=== PATIENT | male | born 1945 | race Caucasian/White ===

== ENCOUNTER → 2016-04-18 | Outpatient (CLI) | payer MEDICARE, MEDICAID ==
[~2016-04-18] MED LIST: ACETYLCYST100 MG/1 M IH; ACETYLCYSTEINE 10% IH; ATROVENT HFA12.9 G1 IH; CARDURA4 MG GT; CARDURA4 MG JT; CIPROFLOXA500 MG/5 M JT; CLARITIN10 MG GT; CLARITIN5 MG/5 ML JT; CORTEF DPS5 MG GT; CORTEF DPS5 MG JT; CORTEF10 MG JT; CRANBERRY JT; CRANBERRY250 MG GT; CRANBERRY250 MG JT; DILANTIN-1125 MG/51 JT; DIPHEDRYL12.5 MG/1 JT; DITROPAN SY5 MG/5 ML JT; DITROPAN-DPS5 MG GT; DITROPAN-DPS5 MG JT; DUONEB DPS3 ML IH; E.E.S. 200200 MG/5 M JT; ERYPED GT; FLONASE 0.05% D16 GM IH; FLONASE 0.05% D16 GM IN; FLONASE 0.05% D16 GM NS; FLOVENT HFA10.6 GM IH; FURADANTIN25 MG/5 ML JT; FUROSEMIDE10 MG/1 M2 JT; IBUPROFEN100 MG/5 M JT; IOPHEN NR100 MG/5 M JT; IOPHEN-C NR LI473 ML JT; KCL40 MEQ/30 JT; KEPPRA DPS500 MG/51 GT; KEPPRA DPS500 MG/51 JT; KEPPRA100 MG/1 M JT; LAMICTAL DPS100 MG JT; LAMICTAL100 MG GT; LAMICTAL150 MG JT; LASIX JT; LEVAQUIN DPS25 MG/ML JT; LEVAQUIN500 MG JT; LORATADINE JT; MAALOX DPS30 ML JT; MAPAP650 MG/20. JT; MILK OF MAGNESI10 ML JT; MIRALAX PACKET17 GM JT; MIRALAX17 GM GT; MOTRIN SUS100 MG/5 M GT; MOTRIN SUS100 MG/5 M JT; MUCOMYST 10% DPS4 ML IH; OMEPRAZOLE GT; OMEPRAZOLE JT; OMEPRAZOLE SUSP JT; POTASSIUM20 MEQ/15 JT; PREDNISONE20 MG GT; PROVENTIL2.5 MG/3 M IH; PSEUDOEPHEDRINE JT; Q-DRYL12.5 MG/5 JT; RESTORIL15 MG GT; ROBITUSSIN100 MG/5 M JT; ROBITUSSIN200 MG/10 GT; ROZEREM8 MG JT; SYNTHROID50 MCG JT; TEMAZEPAM7.5 MG JT; TYLENOL DP650 MG/20. GT; TYLENOL DP650 MG/20. JT; VITAMIN D31000 UNIT JT; VITAMIN D3400 UNIT/1 JT; ZITHROMAX200 MG/51 PO; ZYRTEC 5MG/5ML JT; [UNRECOGNIZED DRUG - MIXTURE] JT; [UNRECOGNIZED DRUG - OTHER] GT; [UNRECOGNIZED DRUG - OTHER] GT; [UNRECOGNIZED DRUG - OTHER] GT; [UNRECOGNIZED DRUG - OTHER] JT; [UNRECOGNIZED DRUG - OTHER] JT; [UNRECOGNIZED DRUG - OTHER] JT; [UNRECOGNIZED DRUG - OTHER] JT
== END | disposition home or self-care (01) ==
LOC: PTH.S 09:45
DX: G40.219 Localization-related (focal) (partial) symptomatic epilepsy and epileptic syndromes with complex partial seizures, intractable, without status epilepticus (principal); G40.419 Other generalized epilepsy and epileptic syndromes, intractable, without status epilepticus; E55.9 Vitamin D deficiency, unspecified; Z92.29 Personal history of other drug therapy

== ENCOUNTER 2016-04-26 19:51 | Emergency (ER) | payer MEDICARE, MEDICAID ==
[~2016-04-26 19:51] MED LIST changes: -ACETYLCYST100 MG/1 M IH; -ACETYLCYSTEINE 10% IH; -DIPHEDRYL12.5 MG/1 JT; -FLONASE 0.05% D16 GM IN; -FUROSEMIDE10 MG/1 M2 JT; -LEVAQUIN DPS25 MG/ML JT; -MOTRIN SUS100 MG/5 M JT; -OMEPRAZOLE SUSP JT; -POTASSIUM20 MEQ/15 JT; -ROBITUSSIN100 MG/5 M JT; -VITAMIN D3400 UNIT/1 JT; -ZYRTEC 5MG/5ML JT
--- NOTE | 2016-05-02 07:42 | ER ---
ADMIT: 04/26/2016 RM/LOC: ER [facility] MR#: [id number] [address] [place] [address] Emergency Room Report SEX: M AGE: 71 : 1945 DATE: 04/26/2016 TIME: 1952 hours. Please refer to my T-sheet for complete H and P. HISTORY OF PRESENT ILLNESS: Briefly, the patient is a 71-year-old with a history of MR and an NG tube, who apparently pulled his GJ tube out tonight, did not come all the way out, the bubble came out. It is still holding the space open, but they brought him in for evaluation. He did not get his night meds. PHYSICAL EXAMINATION: VITAL SIGNS: Stable. ABDOMEN: Soft. J-tube, the bubble is outside the skin, but the tube is still in the entrance, it has been taped in nicely. EMERGENCY DEPARTMENT COURSE: We called Interventional Radiology, Dr. Duran, who is on for the group [facility]. They will work him in the morning. We gave him a liter of normal saline bolus. I gave him his Keppra 200 mg IV, Ativan 0.5 mg IV, and they will hold feeds for tonight and get him first thing after the intervention tomorrow. ASSESSMENT: Pulled out gastrojejunostomy tube. PLAN: Replaced by IR in the morning. Hold meds for tonight and tomorrow morning. Sekou Jimenez MD/ devan JOB #: [id number] CC: Sekou Jimenez MD, Attending Physician Ken Becerra MD, Family Physician
[2016-10-08] MEDS ORDERED: DUONEB DPS3 ML IH ×2 (19:39→19:53)
[2016-10-08] MEDS ORDERED: FLONASE 0.05% D16 GM IN (19:41)
[2016-10-08] MEDS ORDERED: ACETYLCYST100 MG/1 M IH (19:41)
[2016-10-08] MEDS ORDERED: ACETYLCYSTEINE 10% IH (19:42)
[2016-10-08] MEDS ORDERED: CORTEF10 MG JT ×2 (19:43→19:51)
[2016-10-08] MEDS ORDERED: CARDURA4 MG JT (19:43)
[2016-10-08] MEDS ORDERED: DIPHEDRYL12.5 MG/1 JT (19:43)
[2016-10-08] MEDS ORDERED: [UNRECOGNIZED DRUG - OTHER] JT (19:45)
[2016-10-08] MEDS ORDERED: POTASSIUM20 MEQ/15 JT (19:46)
[2016-10-08] MEDS ORDERED: LAMICTAL DPS100 MG JT (19:47)
[2016-10-08] MEDS ORDERED: KEPPRA DPS500 MG/51 JT (19:47)
[2016-10-08] MEDS ORDERED: OMEPRAZOLE SUSP JT (19:48)
[2016-10-08] MEDS ORDERED: MIRALAX PACKET17 GM JT (19:48)
[2016-10-08] MEDS ORDERED: SYNTHROID50 MCG JT (19:49)
[2016-10-08] MEDS ORDERED: VITAMIN D3400 UNIT/1 JT (19:50)
[2016-10-08] MEDS ORDERED: [UNRECOGNIZED DRUG - OTHER] JT (19:51)
[2016-10-08] MEDS ORDERED: LEVAQUIN DPS25 MG/ML JT (19:52)
[2016-10-08] MEDS ORDERED: DITROPAN SY5 MG/5 ML JT (19:52)
[2016-10-08] MEDS ORDERED: MILK OF MAGNESI10 ML JT (19:53)
[2016-10-08] MEDS ORDERED: ZYRTEC 5MG/5ML JT (19:53)
[2016-10-08] MEDS ORDERED: TYLENOL DP650 MG/20. JT (19:54)
[2016-10-08] MEDS ORDERED: ROBITUSSIN100 MG/5 M JT (19:54)
[2016-10-08] MEDS ORDERED: MOTRIN SUS100 MG/5 M JT (19:55)
[2016-10-08] MEDS ORDERED: MAALOX DPS30 ML JT (19:56)
[2016-10-08] MEDS ORDERED: CRANBERRY250 MG JT (19:56)
[2016-10-08] MEDS ORDERED: FUROSEMIDE10 MG/1 M2 JT (19:57)
[2016-10-08] MEDS ORDERED: FURADANTIN25 MG/5 ML JT (19:59)
== END 2016-04-26 22:15 | disposition home or self-care (01) ==
LOC: ER 19:51
DX: Z43.1 Encounter for attention to gastrostomy (principal); Z79.899 Other long term (current) drug therapy

== ENCOUNTER → 2016-04-27 | Outpatient (CLI) | payer MEDICARE, MEDICAID ==
[~2016-04-27] MED LIST changes: +ACETYLCYST100 MG/1 M IH; +ACETYLCYSTEINE 10% IH; +DIPHEDRYL12.5 MG/1 JT; +FLONASE 0.05% D16 GM IN; +FUROSEMIDE10 MG/1 M2 JT; +LEVAQUIN DPS25 MG/ML JT; +MOTRIN SUS100 MG/5 M JT; +OMEPRAZOLE SUSP JT; +POTASSIUM20 MEQ/15 JT; +ROBITUSSIN100 MG/5 M JT; +VITAMIN D3400 UNIT/1 JT; +ZYRTEC 5MG/5ML JT
== END | disposition home or self-care (01) ==
LOC: RAD.S 02-03 14:00
PROC: 0D2DXUZ Change Feeding Device in Lower Intestinal Tract, External Approach (ICD-10-PCS; principal; 2016-04-27)
DX: Z46.59 Encounter for fitting and adjustment of other gastrointestinal appliance and device (principal)

== ENCOUNTER 2016-06-11 08:40 | Emergency (ER) | payer MEDICARE, MEDICAID ==
[~2016-06-11 08:40] MED LIST changes: -ACETYLCYST100 MG/1 M IH; -ACETYLCYSTEINE 10% IH; -DIPHEDRYL12.5 MG/1 JT; -FLONASE 0.05% D16 GM IN; -FUROSEMIDE10 MG/1 M2 JT; -LEVAQUIN DPS25 MG/ML JT; -MOTRIN SUS100 MG/5 M JT; -OMEPRAZOLE SUSP JT; -POTASSIUM20 MEQ/15 JT; -ROBITUSSIN100 MG/5 M JT; -VITAMIN D3400 UNIT/1 JT; -ZYRTEC 5MG/5ML JT
--- NOTE | 2016-06-12 10:41 | ER ---
ADMIT: 06/11/2016 RM/LOC: ER [facility] MR#: [id number] [address] [address] [place] [address] Emergency Room Report SEX: M AGE: 71 : 1945 DATE: 06/11/2016 CHIEF COMPLAINT: Decreased mental status. HISTORY OF PRESENT ILLNESS: This is a 71-year-old male with significant history of cognitive disability secondary to cerebral palsy. He is noncommunicative. He does not follow commands. He is profoundly handicapped secondary to his comorbid conditions. Per half-way records for the past 3 days, he has been having increased weakness and decreased ability to assist with transfers and has been grimacing. He was diagnosed with urinary tract infection about 3 days ago, started on Cipro 500 mg p.o. b.i.d. He has been on this medication in the past, he has no allergies to this medication. Admits to some erythematous rash on his feet as well as some diarrhea. PAST MEDICAL HISTORY: CHF, COPD, neurogenic bladder, hyperlipidemia, GERD, cerebral palsy, recurrent aspiration pneumonia, renal insufficiency, bowel obstruction, epilepsy, status post colostomy. He is a resident of [facility]. COURSE IN THE EMERGENCY ROOM: The patient was seen and examined. He is afebrile and nontoxic. He is alert, however, per family handicapped secondary to cerebral palsy. He has no response to commands. He does not articulate any concerns. He is in a wheelchair and has a chronic indwelling Berry catheter. He does grimace and repeatedly kicks his legs out. No evidence of any pedal edema. There is some erythema on his feet. Pupils were equal and reactive. Extraocular movements intact. Neck soft and supple. He has no respiratory distress. Breath sounds normal. Abdomen is soft and nontender. Did get a CBC on him as well as a CMP, unremarkable. Vital signs have been stable. ADMIT: 06/11/2016 RM/LOC: ER [facility] MR#: [id number] [address] [place] [address] Emergency Room Report SEX: M AGE: 71 : 1945 IMPRESSION: 1. Urinary tract infection, currently treated with Cipro. 2. Weakness. 3. Cerebral palsy. 4. Profound mental cognitive disability. DISPOSITION: Patient to return back to [facility]. Continue to monitor for any worsening signs or symptoms. Follow up with Dr. Becerra as needed. Certainly return to the ER with any concerns. Continue with all medications. Care orders to be resumed. I did speak with his nurse at bedside, comfortable with this plan. Discharged in stable condition. TED Salcedo / Melchor Tellez MD / modl JOB #: [id number] CC: Melchor Tellez MD, Attending Physician Ken Becerra MD, Family Physician
[2016-10-08] MEDS ORDERED: DUONEB DPS3 ML IH ×2 (19:39→19:53)
[2016-10-08] MEDS ORDERED: ACETYLCYST100 MG/1 M IH (19:41)
[2016-10-08] MEDS ORDERED: FLONASE 0.05% D16 GM IN (19:41)
[2016-10-08] MEDS ORDERED: ACETYLCYSTEINE 10% IH (19:42)
[2016-10-08] MEDS ORDERED: DIPHEDRYL12.5 MG/1 JT (19:43)
[2016-10-08] MEDS ORDERED: CARDURA4 MG JT (19:43)
[2016-10-08] MEDS ORDERED: CORTEF10 MG JT ×2 (19:43→19:51)
[2016-10-08] MEDS ORDERED: [UNRECOGNIZED DRUG - OTHER] JT (19:45)
[2016-10-08] MEDS ORDERED: POTASSIUM20 MEQ/15 JT (19:46)
[2016-10-08] MEDS ORDERED: KEPPRA DPS500 MG/51 JT (19:47)
[2016-10-08] MEDS ORDERED: LAMICTAL DPS100 MG JT (19:47)
[2016-10-08] MEDS ORDERED: MIRALAX PACKET17 GM JT (19:48)
[2016-10-08] MEDS ORDERED: OMEPRAZOLE SUSP JT (19:48)
[2016-10-08] MEDS ORDERED: SYNTHROID50 MCG JT (19:49)
[2016-10-08] MEDS ORDERED: VITAMIN D3400 UNIT/1 JT (19:50)
[2016-10-08] MEDS ORDERED: [UNRECOGNIZED DRUG - OTHER] JT (19:51)
[2016-10-08] MEDS ORDERED: DITROPAN SY5 MG/5 ML JT (19:52)
[2016-10-08] MEDS ORDERED: LEVAQUIN DPS25 MG/ML JT (19:52)
[2016-10-08] MEDS ORDERED: MILK OF MAGNESI10 ML JT (19:53)
[2016-10-08] MEDS ORDERED: ZYRTEC 5MG/5ML JT (19:53)
[2016-10-08] MEDS ORDERED: ROBITUSSIN100 MG/5 M JT (19:54)
[2016-10-08] MEDS ORDERED: TYLENOL DP650 MG/20. JT (19:54)
[2016-10-08] MEDS ORDERED: MOTRIN SUS100 MG/5 M JT (19:55)
[2016-10-08] MEDS ORDERED: MAALOX DPS30 ML JT (19:56)
[2016-10-08] MEDS ORDERED: CRANBERRY250 MG JT (19:56)
[2016-10-08] MEDS ORDERED: FUROSEMIDE10 MG/1 M2 JT (19:57)
[2016-10-08] MEDS ORDERED: FURADANTIN25 MG/5 ML JT (19:59)
== END 2016-06-11 11:05 | disposition home or self-care (01) ==
LOC: ER 08:40
DX: N39.0 Urinary tract infection, site not specified (principal); R53.1 Weakness; G80.9 Cerebral palsy, unspecified; I50.9 Heart failure, unspecified; J44.9 Chronic obstructive pulmonary disease, unspecified; E78.5 Hyperlipidemia, unspecified; G40.909 Epilepsy, unspecified, not intractable, without status epilepticus; K56.60 Unspecified intestinal obstruction; Z93.3 Colostomy status; Z79.899 Other long term (current) drug therapy